=== PATIENT | male | born 1995 | race Caucasian/White ===

== ENCOUNTER 2018-11-06 20:23 | Emergency (ER) | payer SELFPAY ==
[~2018-11-06] VITALS: Ht 172.7 cm; Wt 108.9 kg
[2018-11-06] MEDS ORDERED: KETOROLAC 60 MG/2 ML VIAL IM STA (20:39)
[2018-11-06] MEDS ORDERED: LIDOCAINE 1% INJ 20 ML 20 ML VIAL INJ STA (20:39)
[2018-11-06] MEDS ORDERED: CEPHALEXIN 250 MG (KEFLEX) CAP PO STA (20:39)
[2018-11-06] MEDS ORDERED: TETANUS,DIPTH,PERTUSS P/F (BOOSTRIX) 0.5 ML VIAL IM ONE (20:45)
--- NOTE | 2018-11-06 21:07 | ED Fall/Injury ---
General Chief Complaint: Laceration Stated Complaint: RT ELBOW LAC Nursing Triage Note: Patient states that he tripped over a dog and fell onto the gravel. 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 Patient has a laceration to his right forearm that is about 3.8cm. There is minimal bleeding that has been controlled. Patient has several abrasions on his left hand and right knee. Source: patient Exam Limitations: no limitations History of Present Illness Date Seen by Provider: November 06, 2018 Time Seen by Provider: 20:25 Initial Comments 23-year-old male presenting to the emergency department after having a fall onto gravel. He does have multiple abrasions with the worst of them on upper extremities, especially right elbow/forearm. He denies any head injury or LOC. He was out walking their laboratory retriever puppy. He tripped and fell to the ground causing the abrasions and cuts. He denies having his head or losing consciousness. He has had the wounds at least partially cleaned by his family at home prior to coming in. His injury happened approximately an hour prior to arriving in the emergency department. He has not had tetanus vaccination for approximately 7-8 years. He does not take any medications on a daily basis. He has no allergies to medications. He denies any numbness or tingling. He has no loss of function or movement to his hands or arms. Allergies and Home Medications Allergies Coded Allergies: No Known Drug Allergies (Unverified , 11/06/18) Home Medications Cephalexin 500 Mg Tablet, 500 MG PO QID Prescribed by: TIFFANI VARGAS on 11/06/18 [id number] Patient Home Medication List Home Medication List Reviewed: Yes Review of Systems Review of Systems Constitutional: No chills, No fever Eyes: No Symptoms Reported Ears, Nose, Mouth, Throat: no symptoms reported Respiratory: no symptoms reported Cardiovascular: no symptoms reported Gastrointestinal: no symptoms reported Genitourinary: no symptoms reported Musculoskeletal: see HPI Skin: see HPI Psychiatric/Neurological: Denies Numbness, Denies Weakness Past Ypcpnnr-Gubnck-Eyazjz Hx Past Med/Social Hx: Reviewed Nursing Past Med/Soc Hx Patient Social History Alcohol Use: Denies Use Recreational Drug Use: No Smoking Status: Never a Smoker 2nd Hand Smoke Exposure: No Recent Foreign Travel: No Contact w/Someone Who Travel: No Recent Infectious Disease Expo: No Recent Hopitalizations: No Physical Abuse: No Sexual Abuse: No Mistreated: No Fear: No Immunizations Up To Date Tetanus Booster (TDap): More than 5yrs Seasonal Allergies Seasonal Allergies: No Past Medical History Surgeries: No Respiratory: No Cardiac: Yes Hypertension Neurological: No Genitourinary: No Gastrointestinal: No Musculoskeletal: No Endocrine: No HEENT: No Cancer: No Psychosocial: No Integumentary: No Blood Disorders: No Physical Exam Vital Signs Vital Signs - First Documented 11/06/18 20:29 Temp 98.2 Pulse 98 Resp 20 B/P (MAP) 120/81 (94) Pulse Ox 97 O2 Delivery Room Air Capillary Refill : Less Than 3 Seconds Height, Weight, BMI Height: 5'8.00" Weight: 240lbs. 0oz. [id number]; BMI Method:Stated General Appearance: WD/WN, no apparent distress HEENT: PERRL/EOMI, pharynx normal Neck: non-tender, supple Cardiovascular: normal peripheral pulses, regular rate, rhythm Respiratory: chest non-tender, lungs clear, normal breath sounds Gastrointestinal: soft Extremities: normal range of motion, no pedal edema, no calf tenderness, normal capillary refill, other (he has multiple abrasions to both upper extremities, left hand and to the right knee. 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 Abrasions to right forearm and deeper laceration/avulsion to proximal forearm/elbow area. abrasions to right knee) Heather Coma Score Best Eye Response: (4) Open Spontaneously Best Verbal Response: (5) Oriented Best Motor Response: (6) Obeys Commands Heather Total: 15 Procedures/Interventions Wound Location: Upper Extremities Wound Length (cm): 5 Wound's Depth, Shape: linear, sub Q Wound Explored: foreign body removed (contaminated with gravel and dirt that was removed by scrubbing the wound after anesthetized with 1% plain lidocaine) Irrigated w/ Saline (ccs): 500 Betadine Prep?: Yes Anesthesia: 1% Lidocaine Volume Anesthetic (ccs): 14 Wound Debrided: moderate Suture: Ethlion Suture Size: 3-0 Number of Sutures: 5 Layer Closure?: 1 Sterile Dressing Applied?: Yes Progress After obtaining informed consent the wound was anesthetized with 1% plain lidocaine. Then using sterile water and chlorhexidine surgical soap the wound was scrubbed with sterile gauze. All visible debris and proximal and dirt were removed. The area was debrided with good effect and it was having exposed tissue that was bleeding after debridement. No further visible foreign bodies were seen. The wound was then loosely closed with a single skin layer of 3-0 Ethilon and simple interrupted fashion. 5 total sutures were placed to loosely approximate the wound edges. Patient and family were counseled on risk of infection and what to monitor for the area was infected. Will discharge on antibiotics as well as return and follow-up precautions. Progress/Results/Core Measures Results/Orders My Orders Orders - TIFFANI VARGAS MD Ketorolac Injection (Toradol Injection) (11/06/18 20:39) Lidocaine 1% Inj 20 Ml (Xylocaine 1% Inj (11/06/18 20:39) Cephalexin Capsule (Keflex Capsule) (11/06/18 20:39) Dipht,Pertuss(Acell),Tet Adult (Boostrix (11/06/18 20:45) Suture Set At Bedside (11/06/18 20:43) Medications Given in ED Current Medications Medications Dose Ordered Sig/Jc Route Start Time Stop Time Status Last Admin Dose Admin Diphtheria/ Tetanus/Acell Pertussis 0.5 ml ONCE ONCE IM 11/06/18 20:45 11/06/18 20:46 DC 11/06/18 20:50 0.5 ML Vital Signs/I&O 11/06/18 11/06/18 20:29 22:59 Temp 98.2 98.2 Pulse 98 98 Resp 20 20 B/P (MAP) 120/81 (94) 120/81 (94) Pulse Ox 97 97 O2 Delivery Room Air Room Air Blood Pressure Mean: 94 Progress Progress Note : Progress Note update tetanus and start on keflex for prophylaxis coverage of antibiotics since the wounds are dirty with gravel and dirt. Clean and repair the deeper laceration/avulsion that is located on proximal forearm/elbow area of the right arm. Counseled on follow up and return precautions Departure Impression Primary Impression: Abrasion, multiple sites Additional Impressions: Laceration of forearm, right, complicated Qualified Codes: S51.811A - Laceration without foreign body of right forearm, initial encounter Fall Qualified Codes: W19.XXXA - Unspecified fall, initial encounter Disposition: 01 HOME, SELF-CARE Condition: Stable Departure-Patient Inst. Decision time for Depature: 22:51 Referrals: HUGH SNYDER MD (PCP) Primary Care Physician Patient Instructions: Skin Abrasions (DC), Laceration Repair With Stitches (DC) , Diphtheria and Tetanus Toxoids, and Acellular Pertussis Vaccine Add. Discharge Instructions: Keep laceration with stitches clean and dry for 24 hours then may wash with soap and water but do not soak it. May apply antibiotic ointment 2-3 times a day to help it heal and keep from getting infected Watch for signs of infection such as redness streaking up your arm, pus draining from the wound, or fever over 101 F. Return or seek medical care immediately if these things happen. Take the full course of antibiotics. Use Ice 15-20 minutes every few hours to help with swelling and inflammation. Ibuprofen or Naproxen to help with pain and swelling. Stitches should come out in 10-14 days or be seen sooner if having concerns All discharge instructions reviewed with patient and/or family. Voiced understanding. Scripts Cephalexin (Cephalexin) 500 Mg Tablet 500 MG PO QID for 10 Days, #40 TAB 0 Refills Prov: TIFFANI VARGAS MD 11/06/18 TIFFANI VARGAS MD November 06, 2018 21:07
[2018-11-06] MEDS ORDERED: CEPH500T PO (22:55)
[2018-11-06 22:59] VITALS: BP 120/81
== END 2018-11-06 23:00 | disposition home or self-care (01) ==
LOC: ER FS 20:25
DX: S51.021A Laceration with foreign body of right elbow, initial encounter (principal); S80.211A Abrasion, right knee, initial encounter; S60.512A Abrasion of left hand, initial encounter; I10 Essential (primary) hypertension; R40.2142 Coma scale, eyes open, spontaneous, at arrival to emergency department; R40.2252 Coma scale, best verbal response, oriented, at arrival to emergency department; R40.2362 Coma scale, best motor response, obeys commands, at arrival to emergency department; Z23 Encounter for immunization; W01.0XXA Fall on same level from slipping, tripping and stumbling without subsequent striking against object, initial encounter
CPT/HCPCS: 12002; 90715